=== PATIENT | male | born 1965 | race Two or more races ===

== ENCOUNTER 2022-06-21 09:38 | Inpatient (IN) | payer MEDICAID ==
[~2022-06-21] VITALS: Ht 167.6 cm; Wt 77.3 kg
[~2022-06-21 09:38] MED LIST: ASPI-1450 PO; ATOR40TA28 PO; GABA-1216 PO; INSLAN SQ; METO25 PO
[2022-06-21 10:09] LABS: COVID AG,FIA SOURCE NASAL SWAB
[2022-06-21 10:31] LABS: INFLUENZA TYPE A NEGATIVE FOR TYPE A (NEGATIVE); INFLUENZA TYPE B NEGATIVE FOR TYPE B (NEGATIVE)
[2022-06-21 12:57] LABS: BASOPHILS % (AUTO) 1.1 % (0.0-2.0); EOSINOPHILS % (AUTO) 1.3 % (1.0-6.0); HEMATOCRIT 36.8 % (41-53); HEMOGLOBIN 12.3 g/dL (13.5-17.5); LYMPHOCYTES % (AUTO) 17.5 % (22.0-44.0); MEAN CORPUSCULAR HEMOGLOBIN 29.3 pg (26.0-34.0); MEAN CORPUSCULAR HGB CONC 33.6 G/dL (31.0-37.0); MEAN CORPUSCULAR VOLUME 87 fL (80-100); MONOCYTES # (AUTO) 1.7 K/uL (0.1-1.0); MONOCYTES % (AUTO) 14.3 % (2.0-9.0); NEUTROPHILS # (AUTO) 7.6 K/uL (1.8-7.7); NEUTROPHILS % (AUTO) 65.8 % (40.0-70.0); PLATELET COUNT (AUTO) 129 K/uL (150-450); RED BLOOD CELL COUNT(AUTO) 4.22 MIL/uL (4.50-5.90); RED CELL DISTRIBUTION WIDTH 14.9 % (11.5-14.5)
[2022-06-21 13:05] LABS: ANION GAP 10 mmol/L (8-16); CALCIUM, TOTAL 8.2 mg/dL (8.8-10.5); CARBON DIOXIDE 24 mmol/L (22-29); CHLORIDE 105 mmol/L (98-107); CREATININE 0.61 mg/dL (0.60-1.30); GLUCOSE,RANDOM 103 mg/dL (70-110); POTASSIUM 4.1 mmol/L (3.5-5.1); SODIUM SERUM 139 mmol/L (136-145); UREA NITROGEN, BLOOD 14 mg/dL (7-18)
[2022-06-21 13:07] LABS: GLOMERULAR FILTR. RATE CALC > 60 mL/min (>60)
[2022-06-21 13:11] LABS: ALANINE AMINOTRANSFERASE 21 U/L (12-78); ALBUMIN 2.9 g/dL (3.4-5.0); ALKALINE PHOSPHATASE 101 U/L (46-116); ASPARTATE AMINOTRANSFERASE 18 U/L (15-37); BILIRUBIN,TOTAL 0.7 mg/dL (0.1-1.0); TOTAL PROTEIN, SERUM 7.1 g/dL (6.4-8.2)
[2022-06-21 13:15] LABS: LACTIC ACID 1.1 mmol/L (0.4-2.0)
[2022-06-21] MEDS ORDERED: IOHEXOL 350 MG/ML 100 ML VIAL ONE (13:23)
[2022-06-21] MEDS ORDERED: SODIUM CHLORIDE 0.9% 100 ML ONE (13:24)
[2022-06-21] MEDS ORDERED: BENZONATATE 100 MG CAPSULE PO PRN (13:30)
[2022-06-21] MEDS ORDERED: ONDANSETRON HCL 4 MG/2 ML VIAL IVP PRN (13:30)
[2022-06-21] MEDS ORDERED: *CLINICAL-LEVOFLOXACIN IVPB DOSING CLINICAL ONE (13:30)
[2022-06-21] MEDS ORDERED: DEXTROSE 50%-WATER 25 GM/50 ML SYRINGE IVP PRN (13:30)
[2022-06-21] MEDS ORDERED: ALBUTEROL SULFATE 2.5 MG/0.5 ML NEB SOLUTION NEB PRN (13:30)
[2022-06-21] MEDS ORDERED: ACETAMINOPHEN 325 MG TABLET PO PRN (13:30)
[2022-06-21] MEDS: LEVOFLOXACIN 750 MG/D5% WATER 150 ML IV SCH (14:15)
[2022-06-21 20:01] LABS: GLUCOMETER DEV NAME(LOC) 6N.2B; GLUCOSE,POINT OF CARE 86 MG/DL (70-110)
[2022-06-21] MEDS: FAMOTIDINE 20 MG TABLET PO SCH (20:27)
[2022-06-21] MEDS: DOCUSATE SODIUM 100 MG CAPSULE PO SCH (20:27)
[2022-06-21] MEDS: INSULIN GLARGINE,HUM.REC.ANLOG 100 UNITS/ML SQ SCH (20:32)
[2022-06-21] MEDS: INSULIN LISPRO 100 UNITS/ML SQ PRN (20:33)
[2022-06-21 20:41] VITALS: BP 117/75
[2022-06-21 23:06] LABS: GLUCOMETER DEV NAME(LOC) 6N.2B; GLUCOSE,POINT OF CARE 237 MG/DL (70-110)
[2022-06-22 03:33] VITALS: BP 142/81
[2022-06-22] MEDS: INSULIN LISPRO 100 UNITS/ML SQ PRN ×2 (06:10→12:31)
[2022-06-22 08:06] VITALS: BP 132/78
[2022-06-22] MEDS: FAMOTIDINE 20 MG TABLET PO SCH (10:08)
[2022-06-22] MEDS: DOCUSATE SODIUM 100 MG CAPSULE PO SCH (10:08)
[2022-06-22] MEDS: INSULIN GLARGINE,HUM.REC.ANLOG 100 UNITS/ML SQ SCH (10:13)
[2022-06-22 10:46] LABS: GLUCOMETER DEV NAME(LOC) 6N.2B; GLUCOSE,POINT OF CARE 173 MG/DL (70-110)
[2022-06-22 13:31] LABS: GLUCOMETER DEV NAME(LOC) 6N.2B; GLUCOSE,POINT OF CARE 233 MG/DL (70-110)
[2022-06-22] MEDS ORDERED: SODIUM CHLORIDE 0.9% 500 ML IV ONE (14:14)
[2022-06-22] MEDS: LEVOFLOXACIN 750 MG/D5% WATER 150 ML IV SCH (14:28)
[2022-06-22 15:03] VITALS: BP 131/80
[2022-06-22] MEDS ORDERED: SODIUM CHLORIDE 0.9% 100 ML ONE (16:17)
[2022-06-22] MEDS ORDERED: IOHEXOL 350 MG/ML 100 ML VIAL ONE (16:17)
[2022-06-22] MEDS ORDERED: LEVO-72 PO (17:29)
[2022-06-23 14:16] LABS: GLUCOMETER DEV NAME(LOC) 6N.1; GLUCOSE,POINT OF CARE 137 MG/DL (70-110)
== END 2022-06-22 18:05 | disposition home or self-care (01) | DRG 139 ==
LOC: EMS 09:40 → AHU 13:34 → 6S 16:26 → 6N 18:41
PROVIDERS: ADMIT Internal Medicine; ATTEND Internal Medicine
DX: J18.9 Pneumonia, unspecified organism (principal); R04.2 Hemoptysis; Z20.822 Contact with and (suspected) exposure to COVID-19; E11.9 Type 2 diabetes mellitus without complications; E78.00 Pure hypercholesterolemia, unspecified; I10 Essential (primary) hypertension; J47.9 Bronchiectasis, uncomplicated; R04.0 Epistaxis; Z79.4 Long term (current) use of insulin; Z82.49 Family history of ischemic heart disease and other diseases of the circulatory system; Z83.3 Family history of diabetes mellitus; Z86.16 Personal history of COVID-19; Z87.891 Personal history of nicotine dependence
CPT/HCPCS: 70487; 71045; 71270; 80053; 82962; 83605; 85025; 87040; 87804; 93005; 99285; J1815; J1956; J7040; J7050; Q9967; 36415-L1; 36415-TC